=== PATIENT | female | born 1935 | race Caucasian/White ===

== ENCOUNTER 2016-09-09 11:10 | Day surgery (SDC) | payer BC ==
[~2016-09-09] VITALS: Ht 170.2 cm; Wt 93.9 kg
[2016-09-09] MEDS ORDERED: SEVOFLURANE 15 MIN GAS INH ONE (14:00)
[2016-09-09] MEDS ORDERED: ONDANSETRON HCL 4 MG/2 ML VIAL ONE (14:00)
[2016-09-09] MEDS ORDERED: fentaNYL CITRATE 250 MCG/5 ML AMP ONE (14:00)
[2016-09-09] MEDS ORDERED: BACITRACIN 50,000 UNITS VIAL ONE (14:00)
[2016-09-09] MEDS ORDERED: MIDAZOLAM HCL 5 MG/5 ML VIAL ONE (14:00)
[2016-09-09] MEDS ORDERED: NS IRRIG SOLN 1000 ML IR ONE (14:00)
[2016-09-09] MEDS ORDERED: PROPOFOL 200MG/ 20ML VIAL (DIPRIVAN) IV ONE (14:00)
[2016-09-09] MEDS ORDERED: LR 1,000 ML IV.SOLN IV ONE (14:00)
[2016-09-09] MEDS ORDERED: POLYMYXIN B SULFATE 500,000 UNITS VIAL ONE (14:00)
[2016-09-09] MEDS ORDERED: LR 1,000 ML IV SCH (14:48)
[2016-09-09] MEDS ORDERED: METOCLOPRAMIDE HCL 10 MG/2 ML VIAL IVP PRN (15:00)
[2016-09-09] MEDS ORDERED: MORPHINE 2 MG/ML INJ. SYRINGE IVP PRN ×3 (15:00)
[2016-09-09 20:00] VITALS: BP 149/78; PULSE 70; RESP 18; TEMP 97.8; O2SAT 99
[2016-09-09] MEDS ORDERED: NEFA150T PO (21:30)
[2016-09-09] MEDS ORDERED: LABE200T28 PO (21:30)
[2016-09-09] MEDS ORDERED: PRAV40TA63 PO (21:30)
[2016-09-09] MEDS ORDERED: INSNLG7030 SUBCUT ×2 (21:30)
[2016-09-09] MEDS ORDERED: LABETALOL HCL 100 MG TABLET PO ONE (21:45)
[2016-09-09] MEDS ORDERED: INSULIN NPH/REGULAR 70-30, 100 UNITS/ML, 10 ML VIAL SUBCUT ONE (22:00)
[2016-09-09] MEDS ORDERED: CAT.1 PO (22:19)
[2016-09-09] MEDS ORDERED: cloNIDine HCL 0.1 MG TABLET PO ONE (22:30)
[2016-09-09] MEDS ORDERED: HYDROcodone/ACETAMIN 5-325 MG TAB (NORCO/ VICODIN) PO PRN ×2 (23:00)
[2016-09-10 00:05] VITALS: BP 185/91; PULSE 68; RESP 18; TEMP 97.5; O2SAT 97
[2016-09-10 06:10] VITALS: BP 155/73; PULSE 55; RESP 17; TEMP 98.1; O2SAT 96
[2016-09-10] MEDS ORDERED: INSULIN NPH/REGULAR 70-30, 100 UNITS/ML, 10 ML VIAL SUBCUT SCH ×2 (07:00→21:00)
[2016-09-10] MEDS ORDERED: DEXTROSE 50% JECT 50 ML DISP.SYRIN IVP ONE (07:15)
[2016-09-10] MEDS ORDERED: DEXTROSE 50% JECT 50 ML DISP.SYRIN ONE (07:19)
[2016-09-10 08:00] VITALS: BP 137/60; PULSE 63; RESP 19; TEMP 97.6; O2SAT 98
[2016-09-10] MEDS ORDERED: LABETALOL HCL 100 MG TABLET PO SCH (09:00)
[2016-09-10] MEDS ORDERED: cloNIDine HCL 0.1 MG TABLET PO SCH (09:00)
[2016-09-10] MEDS ORDERED: OXYC-130 PO (11:02)
[2016-09-10] MEDS ORDERED: HYDR-3606 PO (11:05)
[2016-09-10 11:09] VITALS: BP 137/60; PULSE 65; RESP 20; TEMP 97.6; O2SAT 98
[2016-09-10 12:00] VITALS: BP 158/58; PULSE 70; RESP 21; TEMP 98.4; O2SAT 98
== END 2016-09-10 11:45 | disposition home or self-care (01) ==
LOC: SDS 11:10 → SMU 18:48 → SDS 09-10 11:45
PROVIDERS: ATTEND Orthopaedic Surgery
DX: S82.62XA Displaced fracture of lateral malleolus of left fibula, initial encounter for closed fracture (principal); X58.XXXA Exposure to other specified factors, initial encounter; Y93.9 Activity, unspecified; Y92.89 Other specified places as the place of occurrence of the external cause; Y99.9 Unspecified external cause status; E11.9 Type 2 diabetes mellitus without complications; Z79.4 Long term (current) use of insulin; I10 Essential (primary) hypertension; E66.01 Morbid (severe) obesity due to excess calories; I49.9 Cardiac arrhythmia, unspecified; M19.90 Unspecified osteoarthritis, unspecified site; G62.9 Polyneuropathy, unspecified; D64.9 Anemia, unspecified
CPT/HCPCS: 27792; 76000; 82962; C1713 ×2; C1763; J1815 ×2; J2250; J2405; J2704; J3010; J7120 ×2

== ENCOUNTER 2016-10-17 17:04 | Inpatient (IN) | payer BC ==
[~2016-10-17] VITALS: Ht 170.2 cm; Wt 92.5 kg
[~2016-10-17 17:04] MED LIST: CAT.1 PO; HYDR-3606 PO; INSNLG7030 SUBCUT; LABE200T28 PO; NEFA150T PO; OXYC-130 PO; PRAV40TA63 PO
[2016-10-17 17:14] VITALS: BP 186/78; PULSE 68; RESP 20; TEMP 98.1; O2SAT 96
--- NOTE | 2016-10-17 17:25 | NUR ---
No ER beds available at this time. Pt placed to ER waiting room in stable condition with family members.
--- NOTE | 2016-10-17 17:40 | NUR ---
ER at bedside examining patient.
--- NOTE | 2016-10-17 18:00 | NUR ---
C/O left ankle pain, swelling, redness, lateral incision to ankle has a tiny dehisence with purulent discharge.
--- NOTE | 2016-10-17 18:08 | NUR ---
x harini at bedside Addendum: 10/17/16 at 2055 by CONCHA X RAY AT BEDSIDE
--- NOTE | 2016-10-17 18:30 | NUR ---
# 24 gauge angiocath placed to RH. Use of asceptic technique. Opsite placed over site. Blood return noted. Flushed with 10 cc of normal saline. No evidence of infiltration noted. Patient tolerated well.
--- NOTE | 2016-10-17 18:35 | NUR ---
# 24 gauge angiocath placed to LAC. Use of asceptic technique. Opsite placed over site. Blood return noted. Flushed with 10 cc of normal saline. No evidence of infiltration noted. Patient tolerated well.
[2016-10-17 18:41] LABS: BASOPHILS # (AUTO) 0.1 K/uL (0.0-0.2); BASOPHILS % (AUTO) 0.4 % (0.0-2.0); EOSINOPHILS # (AUTO) 0.3 K/uL (0.0-0.4); HEMATOCRIT 39.2 % (36-48); HEMOGLOBIN 12.2 g/dL (12.0-16.0); LYMPHOCYTES # (AUTO) 2.4 K/uL (1.0-5.5); LYMPHOCYTES % (AUTO) 17.6 % (20.5-51.5); MEAN CORPUSCULAR HEMOGLOBIN 22 pg (27-31); MEAN CORPUSCULAR HGB CONC 31 % (32-36); MEAN CORPUSCULAR VOLUME 72 fL (79.0-98.0); MONOCYTES # (AUTO) 0.7 K/uL (0.0-1.0); NEUTROPHILS # (AUTO) 10.1 K/uL (1.8-7.7); PLATELET COUNT (AUTO) 299 K/uL (130-430); RED BLOOD CELL COUNT(AUTO) 5.47 MIL/uL (4.2-6.2); RED CELL DISTRIBUTION WIDTH 15.9 % (9.0-15.0); WHITE BLOOD COUNT (AUTO) 13.6 K/uL (4.8-10.8)
[2016-10-17 18:42] LABS: ANION GAP 6 (5-15); CALCIUM 9.1 mg/dL (8.4-11.0); CHLORIDE 100 mmol/L (98-107); CREATININE 0.96 mg/dL (0.55-1.30); GLUCOSE 382 mg/dL (70-99); POTASSIUM 4.2 mmol/L (3.5-5.1); SODIUM SERUM 135 mmol/L (136-145); UREA NITROGEN, BLOOD 16 mg/dL (8-21)
[2016-10-17 18:47] LABS: ALANINE AMINOTRANSFERASE 19 U/L (12-78); ALBUMIN 3.1 g/dL (3.4-4.8); ASPARTATE AMINOTRANSFERASE 16 U/L (10-37); TOTAL BILIRUBIN 0.2 mg/dL (0.0-1.0); TOTAL PROTEIN, SERUM 7.2 g/dL (6.4-8.3)
--- NOTE | 2016-10-17 19:00 | NUR ---
DR. BRAVO AT BEDSIDE TALKING TO PT. ABOUT LACTIC ACID VALUE AND POSSIBLE ADMISSION
[2016-10-17] MEDS ORDERED: NACL 0.9% 1,000 ML IV ONE (19:15)
[2016-10-17] MEDS ORDERED: PIPERACILLIN/TAZO 3.375 GM in NS 50 ML IV ONE (19:15)
[2016-10-17] MEDS ORDERED: VANCOMYCIN HCL 1,000 MG in NS 250 ML IV ONE (19:15)
[2016-10-17] MEDS ORDERED: HUM10VIA3 SUBCUT ×2 (19:18)
[2016-10-17] MEDS ORDERED: ALPR0.5T8 PO (19:22)
[2016-10-17] MEDS ORDERED: PIPERACILLIN/TAZOBACTAM 3.375 GM/VIAL (ZOSYN) IV ONE (19:43)
[2016-10-17] MEDS ORDERED: VANCOMYCIN HCL 1000 MG/VIAL IV ONE (19:43)
--- NOTE | 2016-10-17 20:00 | NUR ---
ORDERS RECEIVED FROM DR. BOSE, CALLED TELE FOR BED, CHARGE WILL CALL BACK WITH A BED
[2016-10-17] MEDS ORDERED: INSULIN REGULAR, HUMAN 100 UNITS/ML, 10 ML VIAL (novoLIN R) SUBCUT PRN (20:15)
[2016-10-17] MEDS ORDERED: DEXTROSE 50% JECT 50 ML DISP.SYRIN IVP PRN ×2 (20:15)
[2016-10-17] MEDS ORDERED: cloNIDine HCL 0.1 MG TABLET PO PRN (20:30)
--- NOTE | 2016-10-17 20:30 | NUR ---
Patient will be admitted to care of DR. HAQ. Admitted to TELE unit. Will go to room 135. Summary report printed. Report given to ADMITTING RN.
--- NOTE | 2016-10-17 20:32 | NUR ---
Admission Note Received patient from ER with diagnosis of wound infection. Initial Plan of Care discussed-patient verbalized understanding. Family at bedside. Oriented to room, call light, pain management and safety.
[2016-10-17 20:38] VITALS: BP 196/86; PULSE 59; RESP 20; TEMP 97.9; O2SAT 100
[2016-10-17] MEDS: NACL 0.9% 1,000 ML IV SCH (21:41)
[2016-10-17] MEDS: LABETALOL HCL 100 MG TABLET PO SCH (21:44)
--- NOTE | 2016-10-17 22:32 | NUR ---
ROUNDS PT IS RESTING @ THIS TIME. ASSISTED TO TURN IN BED. NO C/O PAIN AND NO DISTRESS NOTED.CALL LIGHT WITHIN REACH, WILL CONT TO MONITOR.
--- NOTE | 2016-10-18 00:15 | NUR ---
PAGED AND SPOKE WITH DR BOSE PAGEKevin AND SPOKE WITH DR BOSE ABOUT PT'S ELEVATED B/P. THE GOOD DOCTOR ORDERED CLONIDINE PRN. ORDER NOTED AND CARRIED OUT.
--- NOTE | 2016-10-18 00:19 | NUR ---
paged for Dr Kowalski, dialed . s/w Paula.
--- NOTE | 2016-10-18 00:30 | NUR ---
ROUNDS PT IS AWAKE @ THIS TIME. NO C/O PAIN AND NO SOB NOTED. ELEVATED L LEG WITH A PILLOW FOR COMFORT.CALL LIGHT WITHIN REACH, WILL CONT TO MONITOR.
[2016-10-18] MEDS: cloNIDine HCL 0.1 MG TABLET PO PRN ×3 (00:44→14:54)
[2016-10-18 01:22] VITALS: BP 196/79; PULSE 52; RESP 18; TEMP 96.7; O2SAT 98
--- NOTE | 2016-10-18 02:30 | NUR ---
ROUNDS PT IS RESTING COMFORTABLY, NO C/O PAIN AND NO SOB NOTED. CALL LIGHT WITHIN REACH, WILL CONT TO MONITOR.
--- NOTE | 2016-10-18 03:44 | NUR ---
Consultation Paged Reason for consultation: Wound Infection Was consult called: Yes Person who was notified: Debi Consulting Physician: Norman Mobley; Dr Gómez is on-call for Dr Caryn Cheng is on-call for Dr Gómez Threader Operator Specialty: Streetsweeper Operator
[2016-10-18 03:58] VITALS: BP 194/72; PULSE 54; RESP 18; TEMP 97.6; O2SAT 98
--- NOTE | 2016-10-18 04:30 | NUR ---
ROUNDS PT IS RESTING COMFORTABLY IN BED. NO S/S OF ANY DISTRESS NOTED. BED IN LOW POSITION WITH SIDE RAILS UP X2. CALL LIGHT WITHIN REACH, WILL CONT TO MONITOR.
--- NOTE | 2016-10-18 06:53 | NUR ---
FINAL NOTES PT IS COMFORTABLY RESTING @ THIS TIME. NO C/O PAIN AND NO DISTRESS NOTED. V/S ARE WNL. ALL NEEDS MET AND ANTICIPATED BY NOC NURSES. BED IN LOW POSITION AND SIDE RAILS UP X2 FOR SAFETY. CALL LIGHT WITHIN REACH, ENDORSED.
--- NOTE | 2016-10-18 07:12 | NUR ---
NRSG: RECEIVED PATIENT FROM NIGHT RN, AWAKE,ALERT AND ORIENTED X3. RESPIRATION EVEN AND UNLABORED. LUNGS CLEAR BILATERAL . NO C/O OF PAIN. ON SINUS IFTIKHAR WITH BBB ON THE MONITOR. ABDOMEN SOFT WITH BOWEL SOUNDS X 4 QUADRANTS. RADIAL AND PEDAL PULSE PALPABLE. LEFT FOOT ELEVATED WITH PILLOW AND SLIGHTLY SWOLLEN. HAD IVF ON PROGRESS ON THE LEFT ANTECUBITAL INTACT AND INPLACED . HOB 30 DEGREES AND CALL LIGHT WITHIN REACH.
[2016-10-18 07:46] LABS: BASOPHILS % (AUTO) 0.4 % (0.0-2.0); EOSINOPHILS # (AUTO) 0.3 K/uL (0.0-0.4); HEMATOCRIT 35.3 % (36-48); HEMOGLOBIN 11.1 g/dL (12.0-16.0); LYMPHOCYTES # (AUTO) 2.6 K/uL (1.0-5.5); LYMPHOCYTES % (AUTO) 24.7 % (20.5-51.5); MEAN CORPUSCULAR HEMOGLOBIN 22 pg (27-31); MEAN CORPUSCULAR HGB CONC 31 % (32-36); MEAN CORPUSCULAR VOLUME 71 fL (79.0-98.0); MONOCYTES # (AUTO) 0.8 K/uL (0.0-1.0); MONOCYTES % (AUTO) 7.4 % (1.7-9.3); NEUTROPHILS % (AUTO) 64.5 % (40.0-70.0); PLATELET COUNT (AUTO) 263 K/uL (130-430); RED BLOOD CELL COUNT(AUTO) 4.99 MIL/uL (4.2-6.2); WHITE BLOOD COUNT (AUTO) 10.7 K/uL (4.8-10.8)
[2016-10-18 07:49] LABS: ALANINE AMINOTRANSFERASE 19 U/L (12-78); ALBUMIN 2.7 g/dL (3.4-4.8); ANION GAP 5 (5-15); ASPARTATE AMINOTRANSFERASE 13 U/L (10-37); CALCIUM 8.5 mg/dL (8.4-11.0); CHLORIDE 103 mmol/L (98-107); CREATININE 0.75 mg/dL (0.55-1.30); GLUCOSE 330 mg/dL (70-99); POTASSIUM 4.3 mmol/L (3.5-5.1); SODIUM SERUM 137 mmol/L (136-145); TOTAL BILIRUBIN 0.3 mg/dL (0.0-1.0); TOTAL PROTEIN, SERUM 6.4 g/dL (6.4-8.3); UREA NITROGEN, BLOOD 11 mg/dL (8-21)
[2016-10-18 08:00] VITALS: BP 186/87; PULSE 57; RESP 20; TEMP 97; O2SAT 98
[2016-10-18] MEDS ORDERED: PRAVASTATIN SODIUM 20 MG TABLET (PRAVACHOL) PO SCH (09:00)
[2016-10-18] MEDS: LABETALOL HCL 100 MG TABLET PO SCH (09:25)
[2016-10-18] MEDS: NACL 0.9% 1,000 ML IV SCH (09:30)
--- NOTE | 2016-10-18 09:45 | NUR ---
ROUNDS: SEEN AND EXAMINED BY DR. BOSE WITH NEW ORDER.
--- NOTE | 2016-10-18 10:26 | NUR ---
ACTIVITY: REMAINS ON BEDREST AND LEFT FOOT ELEVATED WITH PILLOW.
[2016-10-18 12:00] VITALS: BP 158/84; PULSE 60; RESP 20; TEMP 97.9; O2SAT 96
--- NOTE | 2016-10-18 12:00 | NUR ---
ACTIVITY: RESTING ON BED AND FAMILY AT THE BEDSIDE AND ASKING FOR HOME HEALTH. CHARGE NURSE AWARE AND DC STEAM ROLLER OPERATOR WAS CALLED BY CHARGE NURSE.
[2016-10-18 14:55] VITALS: PULSE 61; RESP 20; TEMP 97.8; O2SAT 96
[2016-10-18] MEDS ORDERED: CEPH-568 PO (15:15)
[2016-10-18 15:30] VITALS: BP 165/80; PULSE 61; RESP 20; TEMP 97.8; O2SAT 96
--- NOTE | 2016-10-18 15:30 | NUR ---
ACTIVITY: AWAKE,ALERT AND ORIENTED , HOME HEALTH WAS ARRANGED ;
--- NOTE | 2016-10-18 15:50 | NUR ---
DC: DISCHARGED HOME BY WHEELCHAIR ACCOMPANIED BY NURSE, AWAKE,ALERT WITH PRESCRIPTION AND ALL BELONGING SENT.
[2016-10-18] MEDS ORDERED: VANCOMYCIN HCL 1,500 MG in NS 250 ML IV SCH (21:00)
--- NOTE | 2016-10-19 14:22 | NUR ---
Discharge Planning BUSINESS WRITER phoned [place] with HCP/PA. Tender [facility] has been arranged for patient.
--- NOTE | 2016-10-20 12:08 | NUR ---
Discharge Follow Up Phone Call NURSING TEACHER phoned patient, . Patient stated she was doing fine. She filled her prescription and is taking her antibiotic as directed. She has a follow up appointment made with Dr Rubin. [facility] came out and began services today. Patient stated she has no questions or concerns. No further follow up calls needed.
== END 2016-10-18 22:12 | disposition home health service (06) | DRG 603 ==
LOC: SED 17:04 → STU 20:10
PROVIDERS: ADMIT Internal Medicine Hospice and Palliative Medicine; ATTEND Internal Medicine Hospice and Palliative Medicine
DX: L03.116 Cellulitis of left lower limb (principal); E11.9 Type 2 diabetes mellitus without complications; I10 Essential (primary) hypertension; Z96.662 Presence of left artificial ankle joint; Z79.899 Other long term (current) drug therapy; Z87.81 Personal history of (healed) traumatic fracture
CPT/HCPCS: 36415; 80053; 82962; 83605; 85025; 87040-TC; 96365; 96367; 96368; 99285; J1815; J2543; J3370; J7030; J7050; J7060